=== PATIENT | female | born 1950 | race Caucasian/White ===

== ENCOUNTER → 2016-10-23 | Outpatient (CLI) | payer BC ==
[~2016-10-23] MED LIST: STATES NO HOME MEDS
--- NOTE | 2016-10-23 16:18 | MAMMOGRAPHY REPORT ---
BILATERAL DIGITAL SCREENING MAMMOGRAM WITH CAD: 10/23/2016 CLINICAL HISTORY: Routine screening. Patient has no complaints. TECHNIQUE: Bilateral CC and MLO views were obtained. Current study was also evaluated with a Comput er Aided Detection (CAD) system. COMPARISON: Comparison is made to exams dated: 10/18/2015 mammogram, 08/11/2014 mammogram, 11/13/2012 ma mmogram, 11/08/2011 mammogram, 09/01/2009 mammogram, and 11/03/2010 mammogram - [facility] enter. BREAST COMPOSITION: There are scattered areas of fibroglandular density in both breasts. FINDINGS: No suspicious mass, architectural distortion or cluster of microcalcifications is seen. IMPRESSION: ACR BI-RADS CATEGORY 1: NEGATIVE There is no mammographic evidence of malignancy. A 1 year screening mammogram is recommended. The p atient will receive written notification of the results. Approximately 10% of breast cancers are not detected with mammography. A negative mammographic repor t should not delay biopsy if a clinically suggestive mass is present. Carolina Munoz M.D. ay/:10/23/2016 16:09:33 Traffic Officer: Rachael AGUIRRE(R)(M), [facility] letter sent: Normal 1/2 BI-RADS Code: ACR BI-RADS Category 1: Negative
== END ==
LOC: C.MAMM 10:57
PROVIDERS: ATTEND Obstetrics & Gynecology
DX: Z12.31 Encounter for screening mammogram for malignant neoplasm of breast (principal)

== ENCOUNTER → 2017-03-11 | Outpatient (CLI) | payer BC ==
[2017-03-11 11:25] LABS: BLOOD UREA NITROGEN 18 mg/dl (7-18); BUN/CREATININE RATIO 22.5 (10-20); CALCIUM 9.1 mg/dl (8.5-10.1); CARBON DIOXIDE 26 mmol/L (21-32); CHLORIDE 105 mmol/L (98-107); CHOLESTEROL 230 mg/dl (0-200); CREATININE 0.79 mg/dl (0.60-1.20); GLUCOSE 92 mg/dl (70-99); POTASSIUM 4.3 mmol/L (3.5-5.1); SODIUM 139 mmol/L (136-145); TRIGLYCERIDES 42 mg/dl (0-150); VERY LOW DENSITY LIPOPROT CALC 8 mg/dl
[2017-03-11 11:29] LABS: CHOLESTEROL/HDL RATIO 2.4; HDL CHOLESTEROL 97 mg/dl; LDL CHOLESTEROL CALCULATED 125 mg/dl
== END | disposition home or self-care (01) ==
LOC: C.LAB1850 09:35
PROVIDERS: ATTEND Internal Medicine
DX: Z00.00 Encounter for general adult medical examination without abnormal findings (principal); R20.2 Paresthesia of skin; Z13.220 Encounter for screening for lipoid disorders